=== PATIENT | male | born 1985 | race Asian ===

== ENCOUNTER 2024-01-10 14:41 | Emergency (ER) | payer MEDICAID ==
[2024-01-10 14:55] VITALS: BP 122/69; O2SAT 98
--- NOTE | 2024-01-10 14:56 | ED Physician Documentation ---
PD HPI UPPER EXT INJURY - Stated complaint Stated Complaint: LT THUMB POKE - Chief complaint Chief Complaint: Wound - Additonal information Additional information: Generally healthy 38-year-old right-handed gentleman was using a drill in his garage at home drill bit slipped off and he suffered a small puncture wound to his left distal thumb. Bleeding is controlled wound is very superficial. He has not had a tetanus shot within the last 10 years. PD PAST MEDICAL HISTORY - Past Medical History Past Medical History: Yes Cardiovascular: None Respiratory: None Neuro: None Endocrine/Autoimmune: None GI: None : None HEENT: None Psych: None Musculoskeletal: None Derm: None Other Past Medical History: HIV - Past Surgical History Past Surgical History: Yes General: Hiatal hernia repair - Allergies Allergies/Adverse Reactions: Allergies Allergy/AdvReac Type Severity Reaction Status Date / Time No Known Drug Allergies Allergy Verified 01/10/24 14:45 - Social History Does the pt smoke?: No Smoking Status: Never smoker Does the pt drink ETOH?: No Does the pt have substance abuse?: No - Immunizations Immunizations are current?: No Immunizations: TDAP >10years/unknown - POLST Patient has POLST: No PD ED PE NORMAL - Vitals Vital signs reviewed: Yes - Extremities Extremities: Other (Very superficial puncture wound on dorsal surface of distal thumb lateral to nail. No evidence of foreign body or deep space invasion. Bleeding is controlled.) Results - Vitals Vitals: Vital Signs - 24 hr 01/10/24 14:45 Temperature 36.8 C Heart Rate 100 Respiratory 16 Rate Blood Pressure 122/69 O2 Saturation 98 Oxygen O2 Source Room air PD Medical Decision Making - ED course ED course: Very superficial wound. No evidence of trauma to deep structures such as nerves vessels or bones. His tetanus will be updated we will discharge him home. Discussed wound care instructions Departure - Departure Disposition: 01 Home, Self Care Clinical Impression: Puncture wound Condition: Good Comments: Luckily your wound did not penetrate deep into your thumb or injured the bone. We have updated your tetanus shot here today. Would recommend keeping the wound clean and dry soap and water. Could try some topical antibiotic ointment such as bacitracin or triple antibiotic if you have in your medicine cabinet at home. Forms: PCP List
[2024-01-10] MEDS: TETANUS/DIPHTHERIA/PERTUSSIS 0.5 ML SYRINGE IM ONE (15:06)
== END 2024-01-10 15:29 | disposition home or self-care (01) ==
LOC: ED 14:41
DX: S61.032A Puncture wound without foreign body of left thumb without damage to nail, initial encounter (principal); W27.8XXA Contact with other nonpowered hand tool, initial encounter; Y92.008 Other place in unspecified non-institutional (private) residence as the place of occurrence of the external cause; Z23 Encounter for immunization
CPT/HCPCS: 90471; 99283